=== PATIENT | female | born 1970 | race Caucasian/White ===

== ENCOUNTER → 2019-03-22 14:20 | Outpatient (CLI) | payer OTHER, BC, SELFPAY ==
--- NOTE | ~2019-03-22 | MMUS_ITS ---
EXAMINATION: MM diagnostic myra LT w ritesh, US breast LT limited HISTORY: Six-month follow-up for probably benign left breast masses TECHNIQUE: Craniocaudal, mediolateral, and mediolateral oblique 3-D tomosynthesis images of the left breast were performed and synthetic 2-D images were generated. And compression views are also obtaine d. CAD analysis was submitted and interpreted. High resolution limited left breast ultrasound was per formed. COMPARISON: 10/01/2018, 09/25/2018, 05/25/2017, 07/19/2015 BREAST PARENCHYMAL COMPOSITION: There are scattered areas of fibroglandular density. FINDINGS: MAMMOGRAPHIC FINDINGS: There is a persistent asymmetry in the middle third of the outer breast 7 cm from the nipple which christian s an appearance similar to prior examinations with spot compression views. An asymmetry is also seen in the posterior third of the inner breast 10 cm from the nipple on the craniocaudal view. This appea rs to somewhat dispersed with spot compression views. ULTRASOUND: There is a stable 4 mm x 3 mm oval, circumscribed, parallel, hypoechoic mass with no posterior featur es or internal vascularity at the 1:00 location 6.5 cm from the nipple. The previously described mass at the 1:00 location 8 cm from the nipple is no longer identified. A stable 3 mm x 2 mm mass with si milar sonographic features is seen at the 1:00 location near the nipple. Also identified is a 3 mm x 2 mm oval, circumscribed, parallel, hypoechoic mass at the 10:00 location 3.5 cm from the nipple. The re is some questionable posterior acoustic shadowing but no internal vascularity. IMPRESSION: 1. Probably benign left breast masses. 2. Recommend 6 month follow-up left diagnostic mammogram and ultrasound. BI-RADS category 3, probably benign findings. Reviewed, dictated and finalized at location A. ENE OPERATOR IMPRESSION: 1. Probably benign left breast masses. 2. Recommend 6 month follow-up left diagnostic mammogram and ultrasound. BI-RADS category 3, probably benign findings.
== END ==
PROVIDERS: PCP Physician Assistant; Visit Provider Obstetrics & Gynecology
DX: N63.0 Unspecified lump in unspecified breast (principal); R92.8 Other abnormal and inconclusive findings on diagnostic imaging of breast
CPT/HCPCS: 76642; 77061; 77065; G0279

== ENCOUNTER 2019-04-30 23:02 | Emergency (ER) | payer OTHER, BC, SELFPAY ==
[2019-04-30 23:03] VITALS: BP 130/97; PULSE 64; RESP 20; TEMP 36.4; O2SAT 100
--- NOTE | 2019-04-30 23:41 | ED.ABDPAIN ---
HPI - Abdominal Pain General Chief Complaint: Urogenital-Female Stated Complaint: UTI? Time Seen by Provider: 04/30/19 23:19 Source: patient Mode of arrival: ambulatory Limitations: no limitations History of Present Illness HPI narrative: Frequent urination few hours prior to arrival, similar symptoms secondary to urinary tract infection, denies any fever, chills, nausea, vomiting, suprapubic pressure type discomfort, no radiation of pain. Patient denies any vaginal bleeding or discharge. Related Data Allergies Allergy/AdvReac Type Severity Reaction Status Date / Time nitrofurantoin Allergy Swelling Verified 04/30/19 23:06 [From Macrobid] Review of Systems Review of Systems: Narrative: CONSTITUTIONAL: Denies fever, chills, or sweats. EYES: Denies visual changes, redness, or discharge. ENT: Denies rhinorrhea, congestion, sore throat, or otalgia. CARDIOVASCULAR: Denies chest pain, palpitations, or edema. RESPIRATORY: Denies cough or dyspnea. GASTROINTESTINAL: Denies abdominal pain, nausea, vomiting, or diarrhea. GENITOURINARY: Denies dysuria or hematuria. SKIN: Denies rash or itching. MUSCULOSKELETAL: Denies back pain, joint pain, or myalgia. NEUROLOGIC: Denies headache, numbness, or weakness. PSYCHIATRIC: Denies anxiety or depression. [facility] Past Medical History Medical History (Updated 05/01/19 @ 00:20 by Enid Simental MD) Kidney stones UTI (urinary tract infection) Surgical History Surgical History Hx of appendectomy Hx of spinal surgery Hx of tubal ligation Social History Social History (Updated 02/20/19 @ 10:58 by Danielle Becker) Smoking status: Never smoker Alcohol intake: current Substance use: never Gender identity (if verbalized by the patient): Female Exam Narrative: Exam Narrative: General appearance: Well-developed, well-nourished Skin: Normal color Chest and respiratory: Airway patent, no respiratory distress, no accessory muscle use Heart: Regular rate/rhythm Abdomen: Soft, nontender, no organomegaly, quiet bowel sounds Vascular: Normal peripheral pulses, normal capillary refill. Course Course Emergency Course: Stable Vital Signs Vital signs: Vital Signs Temperature 36.4 C L 04/30/19 23:03 Pulse Rate 64 04/30/19 23:03 Respiratory Rate 20 04/30/19 23:03 Blood Pressure 130/97 H 04/30/19 23:03 Pulse Oximetry 100 04/30/19 23:03 Temperature 36.4 C L 04/30/19 23:03 Pulse Rate 64 04/30/19 23:03 Respiratory Rate 20 04/30/19 23:03 Blood Pressure 130/97 H 04/30/19 23:03 Pulse Oximetry 100 04/30/19 23:03 MDM - Abdominal Pain MDM Narrative Medical decision making narrative: UTI is my concern. UA ordered. Further plan to follow Differential Diagnosis Differential diagnosis: Likely other (Urinary tract infection) Critical Care Time Critical Care Time Critical Care Time: No Discharge Plan Discharge Clinical Impression: Urethritis Patient Disposition: Home, Self-Care Condition: Stable Instructions: Antibiotic Form, Urinary Tract Infection in Women (ED) Additional Instructions: Return if symptoms are worsening , call your family physician for appointment, take Tylenol as as needed for aches and pain, continue home medications. Prescriptions: New sulfamethoxazole-trimethoprim [Bactrim DS] 800-160 mg tablet 1 tablet PO Q12H Qty: 6 RF: 0 pyridoxine (vitamin B6) 200 mg tablet extended release 200 mg PO TID Qty: 6 RF: 0 Follow-up/Referrals: Roberto,AURA Wilder [Primary Care Provider] -
[2019-04-30 23:45] LABS: Add Urine Microscopic? YES; Appearance Urine Clear (Clear); Bilirubin Urine Negative (Negative); Blood Urine 2+ (Negative); Color Urine Yellow (Yellow); Glucose Urine UA Negative (Negative); Ketones Urine Negative (Negative); Leukocyte Esterase Ur Trace LEU/UL (Negative); Mucus Urine Heavy /lpf; Nitrate Urine Negative (Negative); Protein Urine 2+ mg/dL (Negative); Squamous Epithelial Cell Urine Few /hpf (Few); Urobilinogen Urine Negative mg/dL (<2.0)
[2019-05-01 00:14] LABS: Specific Grav Ur 1.033 (1.001-1.035)
[2019-05-01 00:31] VITALS: BP 122/77; PULSE 77; RESP 18; O2SAT 98
== END 2019-05-01 00:32 | disposition home or self-care (01) ==
PROVIDERS: Emergency Provider Emergency Medicine; PCP Physician Assistant
DX: N34.2 Other urethritis (principal); Z87.442 Personal history of urinary calculi
CPT/HCPCS: 81001; 87086; 87088; 99283

== ENCOUNTER → 2019-11-09 08:22 | Outpatient (CLI) | payer OTHER, BC, SELFPAY ==
--- NOTE | ~2019-11-09 | MMUS_ITS ---
EXAMINATION: MM diagnostic myra BI w ritesh, US breast LT complete HISTORY: Left breast masses follow-up TECHNIQUE: ML, MLO and craniocaudal full field 3-D tomosynthesis images of the breasts were performed as well as additional spot images of the left breast and synthetic 2-D images were generated. Rolled medial and lateral craniocaudal views of left breast. CAD analysis was submitted and interpreted. Hi gh resolution complete left breast ultrasound was performed. COMPARISON: 03/22/2019 diagnostic left digital mammogram and limited left breast ultrasound 10/01/2018 diagnostic left digital mammogram and limited left breast ultrasound 09/25/2018, 05/25/2017, 07/19/2015 bilateral digital screening mammogram examinations BREAST PARENCHYMAL COMPOSITION: There are scattered areas of fibroglandular density. FINDINGS: MAMMOGRAPHIC FINDINGS: No suspicious mass or architectural distortion, malignant calcification, skin thickening or retractio n or significant new or developing density is evident since 07/19/2015. Occasional benign calcification s. ULTRASOUND: 1:00 subareolar area: Rounded 3 mm sonolucency without internal vascularity 1:00 6.5 cm from nipple: 2.6 mm sonolucency without internal vascularity 10:00 3.5 cm from nipple: Nonspecific 1.6 mm hypoechoic area without internal vascularity IMPRESSION: 1. Probably benign findings 2. 6 month left breast ultrasound follow-up is recommended. BI-RADS category 3, probably benign findings. Reviewed, dictated and finalized at location A. IMPRESSION: 1. Probably benign findings 2. 6 month left breast ultrasound follow-up is recommended. BI-RADS category 3, probably benign findings.
== END ==
PROVIDERS: PCP Physician Assistant; Visit Provider Nurse Practitioner Obstetrics & Gynecology
DX: R92.8 Other abnormal and inconclusive findings on diagnostic imaging of breast (principal)
CPT/HCPCS: 76641; 77062; 77066; G0279

== ENCOUNTER → 2020-11-12 14:21 | Outpatient (CLI) | payer OTHER, BC, SELFPAY ==
--- NOTE | ~2020-11-12 | MMUS_ITS ---
EXAMINATION: MM screening myra BI w ritesh, US breast LT limited HISTORY: Follow-up left breast mass TECHNIQUE: Craniocaudal and mediolateral oblique 3-D tomosynthesis images were obtained and synthetic 2-D images were generated. CAD analysis was submitted and interpreted. High-resolution Limited left breast ultrasound. COMPARISON: Comparison to multiple prior studies sequentially, with oldest reviewed study dated 03/2015. BREAST PARENCHYMAL COMPOSITION: There are scattered areas of fibroglandular density. FINDINGS: There is no evidence of suspicious mass, calcification, or architectural distortion to sugg est malignancy in either breast. There has been no suspicious interval change. Limited left breast ultrasound: Normal heterogeneous echotexture without focal mass. IMPRESSION: 1. No evidence of malignancy. 2. Recommend routine screening mammography in one year. BI-RADS Category 1: Negative Reviewed, dictated and finalized at location A. IMPRESSION: 1. No evidence of malignancy. 2. Recommend routine screening mammography in one year. BI-RADS Category 1: Negative
== END ==
PROVIDERS: PCP Physician Assistant; Visit Provider Nurse Practitioner Obstetrics & Gynecology
DX: Z12.31 Encounter for screening mammogram for malignant neoplasm of breast (principal); N63.20 Unspecified lump in the left breast, unspecified quadrant
CPT/HCPCS: 76642; 77063; 77067

== ENCOUNTER 2022-01-01 08:20 | Emergency (ER) | payer OTHER, BC, SELFPAY ==
--- NOTE | ~2022-01-01 | XR_ITS ---
EXAMINATION: XR chest 2V DATE: 01/01/2022 08:49 INDICATION: Chest pain radiating from the back. TECHNIQUE: Frontal and lateral views of the chest were obtained. COMPARISON: Chest 2 views 12/07/2003, CT abdomen and pelvis 02/15/2019 FINDINGS: There is no pneumonia, pleural effusion, or pneumothorax. The heart size is normal. IMPRESSION: 1. No acute cardiopulmonary disease. Reviewed, dictated and finalized at location A. N FARMER
--- NOTE | 2022-01-01 08:29 | ECG_ITS ---
Measurements Intervals [place] Rate: 69 P: 49 MI: 155 QRS: 31 QRSD: 85 T: 32 QT: 366 QTc: 393 Interpretive Statements SINUS RHYTHM NORMAL ECG NO PREVIOUS ECG AVAILABLE FOR COMPARISON Electronically Signed On 01-01-2022 12:07:09 [employer] by John Ivy D.O.
[2022-01-01 08:30] VITALS: BP 142/91; PULSE 81; RESP 18; TEMP 37.2; O2SAT 100
[2022-01-01 08:38] VITALS: O2SAT 100
[2022-01-01 08:43] LABS: Basophils Percent Auto 0.6 % (0.2-1.2); Eosinophils Absolute Auto 0.1 K/mm3 (0-0.3); Eosinophils Percent Auto 1.6 % (0-4.4); Hematocrit 39.9 % (37.0-47.0); Hemoglobin 13.2 g/dL (12.0-15.0); Immature Granulocyte Absolute 0.02 K/mm3 (0.00-0.031); Immature Granulocyte Percent A 0.3 % (0-0.5); Lymphocytes Percent Auto 35.7 % (18.3-44.2); Mean Corpuscular HGB Conc 33.1 g/dl (32-36); Mean Corpuscular Hemoglobin 31.3 pg (26-34); Mean Corpuscular Volume 94.5 fl (80-100); Mean Platelet Volume 9.8 fl (7.4-10.4); Monocytes Absolute Auto 0.4 K/mm3 (0.1-0.6); Neutrophils Absolute Auto 3.4 K/mm3 (1.3-6.7); Neutrophils Percent Auto 55.8 % (45.5-73.1); Platelet Count Result 353 k/mm3 (150-375); Red Blood Count 4.22 M/mm3 (4.2-5.4); Red Cell Distribution Width 13.3 % (11.5-14.5); White Blood Count 6.2 K/mm3 (4.5-10.0)
[2022-01-01 08:58] LABS: Prothrombin Time 12.5 Seconds (11.1-14.7)
[2022-01-01 08:59] LABS: Alanine Aminotransferase 18 U/L (6-35); Albumin Level 4.8 g/dL (3.5-5.1); Alkaline Phosphatase 86 U/L (38-126); Anion Gap 15 mmol/L (8-16); Aspartate Amino Transferase 26 U/L (14-36); Bilirubin,Total 0.4 mg/dL (0.2-1.3); Blood Urea Nitrogen 13 mg/dL (7-17); Calcium 9.5 mg/dL (8.4-10.2); Carbon Dioxide 24 mmol/L (22-30); Chloride 104 mmol/L (98-107); Estimated CRCL calculation 77 ml/min; Estimated Glomerular Filt Rate > 60; Glucose 99 mg/dL (65-110); Lipase 99 U/L (23-300); Partial Thromboplastin Time 30.3 SECONDS (22.3-36.8); Potassium 3.5 mmol/L (3.4-5.0); Sodium 143 mmol/L (137-145)
[2022-01-01 09:11] LABS: Troponin I < 0.012 ng/mL (0.000-0.034)
--- NOTE | 2022-01-01 09:31 | ED.CHESTPAIN ---
HPI - Chest Pain General Chief Complaint: Chest Pain Stated Complaint: back pain/ chest pain Time Seen by Provider: 01/01/22 09:01 Source: patient Mode of arrival: ambulatory Limitations: no limitations History of Present Illness HPI narrative: Patient is a 51-year-old female who presents the ED with report of back and chest pain. Patient reports she has had intermittent left upper back pain since last Thursday. She has been taking Tylenol and 1 muscle relaxer for the pain. She assumed she just slept wrong. Pain worse with taking deep breaths and certain movements. Today around 2 AM this morning, patient woke up with worsening left upper back pain and pain in her midsternal chest. The chest pain has been intermittent, described as a dull ache, no aggravation with exertion. No history of CAD. No history of hypertension, hyperlipidemia, diabetes, smoking. No SOB, BLE pain or edema, no recent long distance travel, hormonal control use, Hx of blood clots. Related Data Allergies Allergy/AdvReac Type Severity Reaction Status Date / Time nitrofurantoin Allergy Swelling Verified 01/01/22 08:41 [From Macrobid] Review of Systems Review of Systems: CONSTITUTIONAL: Denies fever, chills, or sweats. CARDIOVASCULAR: Reports midsternal chest pain. Denies palpitations, or edema. RESPIRATORY: Reports pleuritic pain. Denies cough or dyspnea. GASTROINTESTINAL: Denies abdominal pain, nausea, vomiting, or diarrhea. MUSCULOSKELETAL: Reports left upper back pain. Denies BLE pain. NEUROLOGIC: Denies headache, numbness, or weakness. All systems reviewed & are unremarkable except as noted in HPI and below PMFSH Past Medical History Medical History Kidney stones UTI (urinary tract infection) Surgical History Surgical History Hx of appendectomy Hx of spinal surgery Hx of tubal ligation Social History Social History Smoking status: Never smoker Alcohol intake: current Alcohol use details: Occasional Substance use: never Gender identity (if verbalized by the patient): Female Exam Narrative: GENERAL: Well appearing, well-nourished, non-toxic, in no acute distress. HEAD: Normocephalic, atraumatic. NECK: Supple. No adenopathy, no masses. RESPIRATORY: Airway patent, respirations nonlabored. Clear to auscultation bilaterally, no rales, rhonchi, wheezing. CARDIOVASCULAR: Regular rate and rhythm without murmurs, rubs, or gallops. Peripheral pulses 2+ and equal bilaterally. MUSCULOSKELETAL: Moves all extremities. Strength/ROM intact without gross deformities. No calf tenderness. No edema. No anterior chest wall tenderness. No midline cervical, thoracic, lumbar spinal tenderness. Minimal tenderness palpation over the left lower scapular region. SKIN: Warm, dry, normal color. No rashes. NEURO: A&O X3. Speech clear. Cranial nerves II-XII grossly intact. Steady gait. No ataxic movements. PSYCHIATRIC: Appropriate mood and affect. Normal interaction. Course Vital Signs Vital signs: Vital Signs Temperature 98.9 F 01/01/22 08:30 Pulse Rate 81 01/01/22 08:30 Respiratory Rate 18 01/01/22 08:30 Blood Pressure 142/91 H 01/01/22 08:30 Pulse Oximetry 100 01/01/22 08:30 Oxygen Delivery Room Air 01/01/22 08:30 Temperature 98.9 F 01/01/22 08:30 Pulse Rate 69 01/01/22 12:10 Respiratory Rate 20 01/01/22 12:10 Blood Pressure 122/80 01/01/22 12:10 Pulse Oximetry 100 01/01/22 12:10 Oxygen Delivery Room Air 01/01/22 08:38 MDM - Chest Pain MDM Narrative Medical decision making narrative: Patient presented to ED with report of left upper back, chest pain, pain aggravated with deep breaths and movement. Patient's EKGs and labs are without significant high risk changes. EKG w/o acute ischemic changes. Troponin negativ
[2022-01-01 09:38] VITALS: PULSE 69; RESP 12; O2SAT 100
[2022-01-01 10:39] VITALS: BP 123/87; PULSE 72; RESP 12; O2SAT 100
[2022-01-01 10:42] LABS: D Dimer 0.27 ug/mL (<0.48)
[2022-01-01 11:52] LABS: Troponin I < 0.012 ng/mL (0.000-0.034)
[2022-01-01 12:10] VITALS: BP 122/80; PULSE 69; RESP 20; O2SAT 100
== END 2022-01-01 12:34 | disposition home or self-care (01) ==
PROVIDERS: Emergency Provider Emergency Medicine; PCP Physician Assistant
DX: R07.89 Other chest pain (principal); M54.9 Dorsalgia, unspecified; Z87.442 Personal history of urinary calculi; Z87.440 Personal history of urinary (tract) infections
CPT/HCPCS: 36415; 71046; 80053; 83690; 84484; 85025; 85380; 85610; 85730; 93005; 99284

== ENCOUNTER 2022-03-26 18:56 | Emergency (ER) | payer OTHER, BC, SELFPAY ==
--- NOTE | ~2022-03-26 | CT_ITS ---
EXAMINATION: CT abdomen pelvis wo con DATE: 03/26/2022 21:34 INDICATION: Right flank pain TECHNIQUE: Computed tomography (CT) of the abdomen and pelvis was performed without intravenous contr ast. Automated exposure control and iterative reconstruction technique were employed. The dose-length product was 228.82 mGy-cm. COMPARISON: 02/15/2019 FINDINGS: Lower lungs are clear. Heart size is normal. No pericardial or pleural effusion. A few hepatic cysts the largest measuring up to 1 cm . Gallbladder, spleen, pancreas and bilateral adrenal glands are nor mal. Kidneys and ureters are normal with no urolithiasis, hydroureteronephrosis or perinephric/ureter al stranding. Bowels are normal. Normal short appendix versus appendiceal stump with no surrounding i nflammatory change to suggest acute appendicitis. Bladder is normal. Bilateral tubal ligation rings s ituated between the normal anteverted uterus and the bilateral adnexa. No free intraperitoneal gas or fluid. No pathologically enlarged abdominal or pelvic lymphadenopathy. Combined instrumented anterio r and posterior spinal fusion at L5 along with interbody bone graft cages and bilateral vertical [place] and pedicle screw fixation. Mild lumbar and moderate lower thoracic spondylosis. IMPRESSION: 1. No urolithiasis or acute intra-abdominal/pelvic process. Reviewed, dictated and finalized at location A. WORKER
[2022-03-26 19:02] VITALS: BP 131/90; PULSE 64; RESP 18; TEMP 36.4; O2SAT 100
[2022-03-26 19:16] LABS: Basophils Absolute Auto 0.1 K/mm3 (0.0-0.1); Basophils Percent Auto 0.7 % (0.2-1.2); Eosinophils Absolute Auto 0.3 K/mm3 (0-0.3); Eosinophils Percent Auto 2.5 % (0-4.4); Hemoglobin 12.2 g/dL (12.0-15.0); Immature Granulocyte Absolute 0.02 K/mm3 (0.00-0.031); Immature Granulocyte Percent A 0.2 % (0-0.5); Lymphocytes Absolute Auto 4.67 K/mm3 (0.9-3.2); Lymphocytes Percent Auto 46.9 % (18.3-44.2); Mean Corpuscular Hemoglobin 30.9 pg (26-34); Mean Corpuscular Volume 93.7 fl (80-100); Mean Platelet Volume 9.4 fl (7.4-10.4); Monocytes Absolute Auto 0.7 K/mm3 (0.1-0.6); Monocytes Percent Auto 7.1 % (2.6-8.5); Neutrophils Absolute Auto 4.2 K/mm3 (1.3-6.7); Neutrophils Percent Auto 42.6 % (45.5-73.1); Platelet Count Result 380 k/mm3 (150-375); Red Blood Count 3.95 M/mm3 (4.2-5.4); Red Cell Distribution Width 13.4 % (11.5-14.5)
[2022-03-26 19:31] LABS: Alanine Aminotransferase 27 U/L (6-35); Albumin Level 4.4 g/dL (3.5-5.1); Alkaline Phosphatase 94 U/L (38-126); Anion Gap 9 mmol/L (8-16); Aspartate Amino Transferase 25 U/L (14-36); Bilirubin,Total 0.5 mg/dL (0.2-1.3); Blood Urea Nitrogen 14 mg/dL (7-17); Carbon Dioxide 25 mmol/L (22-30); Chloride 103 mmol/L (98-107); Estimated CRCL calculation 66 ml/min; Estimated Glomerular Filt Rate > 60; Glucose 91 mg/dL (65-110); Lipase 88 U/L (23-300); Potassium 3.8 mmol/L (3.4-5.0); Sodium 137 mmol/L (137-145)
[2022-03-26 20:47] LABS: Add Urine Microscopic? YES; Appearance Urine Clear (Clear); Bilirubin Urine Negative (Negative); Blood Urine 2+ (Negative); Color Urine Orange (Yellow); Glucose Urine UA Trace mg/dL (Negative); Ketones Urine Negative (Negative); Leukocyte Esterase Ur 1+ LEU/UL (Negative); Nitrate Urine Positive (Negative); Protein Urine Trace mg/dL (Negative); Specific Grav Ur <= 1.005 (1.001-1.035)
--- NOTE | 2022-03-26 20:50 | ED.FEMALEGU ---
HPI - Female Genitourinary General Chief complaint: Urogenital-Female Stated complaint: abdominal pain Time Seen by Provider: 03/26/22 20:18 History of Present Illness HPI Narrative: This is a 52F w/history of kidney stones presents from urgent care with concern for repeat stone. She states 1 week ago, she had mild aching back pain that has since resolved. A UA at an urgent care at the time showed blood without other changes for UTI. Today, she felt some suprapubic cramping. She went to urgent care and was told she had blood and bacteria. She was advised to present her for evaluation for kidney stone. Related Data Allergies Allergy/AdvReac Type Severity Reaction Status Date / Time nitrofurantoin Allergy Swelling Verified 01/01/22 08:41 [From YingYangbid] Review of Systems Review of Systems: CONSTITUTIONAL: Denies fever, chills, or sweats. EYES: Denies visual changes, redness, or discharge. ENT: Denies rhinorrhea, congestion, sore throat, or otalgia. CARDIOVASCULAR: Denies chest pain, palpitations, or edema. RESPIRATORY: Denies cough or dyspnea. GASTROINTESTINAL: Mild suprapubic cramping, Denies abdominal pain, nausea, vomiting, or diarrhea. GENITOURINARY: Urinary frequency Denies dysuria or hematuria. SKIN: Denies rash or itching. MUSCULOSKELETAL: Denies back pain, joint pain, or myalgia. NEUROLOGIC: Denies headache, numbness, dizziness, or weakness. PSYCHIATRIC: Denies anxiety or depression. PMFSH Past Medical History Medical History Kidney stones UTI (urinary tract infection) Surgical History Surgical History Hx of appendectomy Hx of spinal surgery Hx of tubal ligation Social History Social History Smoking status: Never smoker Alcohol intake: current Alcohol use details: Occasional Substance use: never Gender identity (if verbalized by the patient): Female Exam Narrative: GENERAL: Well-developed, well-nourished, and in no acute distress. HEAD: Normocephalic, atraumatic. EYES: PERRLA and EOMI. CHEST: Clear to auscultation. No respiratory distress. No wheezes rales or rhonchi HEART: Regular rate and rhythm. No murmur heard. Normal peripheral pulses. ABDOMEN: Soft, nontender to palpation, nondistended, normal active bowel sounds. No CVA tenderness to palpation EXTREMITIES: Normal range of motion. No edema. NEURO: No focal deficits. Alert and oriented x3. PSYCH: Normal mood and affect. Course Course Emergency Course: 23:00 - CT not concerning for stone. UA consistent with UTI. Will discharge with antibiotics. Discussed return and emergency precautions including acute abdomen. The patient voiced understanding and agreement. All questions answered to the patient's satisfaction. Vital Signs Vital signs: Vital Signs Temperature 97.6 F 03/26/22 19:02 Pulse Rate 64 03/26/22 19:02 Respiratory Rate 18 03/26/22 19:02 Blood Pressure 131/90 03/26/22 19:02 Pulse Oximetry 100 03/26/22 19:02 Oxygen Delivery Room Air 03/26/22 19:02 Temperature 97.6 F 03/26/22 19:02 Pulse Rate 66 03/26/22 23:20 Respiratory Rate 18 03/26/22 23:20 Blood Pressure 126/84 03/26/22 23:20 Pulse Oximetry 100 03/26/22 23:20 Oxygen Delivery Room Air 03/26/22 19:02 MDM - Female Genitourinary MDM Narrative Medical decision making narrative: Plan: Labs, imaging, reassess Differential Diagnosis Differential diagnosis: Likely urinary tract infection and other (nephrolithiasis, other) Lab Data 03/26/22 19:07 03/26/22 19:07 Labs: Lab Results 03/26/22 03/26/22 03/26/22 Range/Units 19:07 19:07 20:12 WBC 10.0 (4.5-10.0) K/mm3 RBC 3.95 L (4.2-5.4) M/mm3 Hgb 12.2 (12.0-15.0) g/dL Hct 37.0 (37.0-47.0) % MCV 93.7 (80-100) fl MCH 30.9 (26-34) pg MCHC 33.0 (3
[2022-03-26 21:00] LABS: Mucus Urine Rare /lpf; Squamous Epithelial Cell Urine Rare /hpf (Few); WBC Urine >75 /hpf
[2022-03-26 23:20] VITALS: BP 126/84; PULSE 66; RESP 18; O2SAT 100
== END 2022-03-26 23:15 | disposition home or self-care (01) ==
PROVIDERS: Emergency Medicine; Emergency Provider Preventive Medicine Aerospace Medicine; PCP Physician Assistant
DX: N39.0 Urinary tract infection, site not specified (principal); Z87.442 Personal history of urinary calculi; Z87.440 Personal history of urinary (tract) infections
CPT/HCPCS: 36415; 74176; 80053; 81001; 81025; 83690; 85025; 87077; 87086; 87186; 99284

== ENCOUNTER → 2022-05-30 17:01 | Outpatient (CLI) | payer OTHER, BC, SELFPAY ==
--- NOTE | ~2022-05-30 | MM_ITS ---
EXAMINATION: MM screening [facility] BI w ritesh HISTORY: Screening mammogram TECHNIQUE: Craniocaudal and mediolateral oblique 3-D tomosynthesis images were obtained and synthetic 2-D images were generated. CAD analysis was submitted and interpreted. COMPARISON: 11/12/2020, 11/09/2019, 03/22/2019, 10/01/2018, 09/25/2018 BREAST PARENCHYMAL COMPOSITION: There are scattered areas of fibroglandular density. FINDINGS: No suspicious mass, calcification, or architectural distortion are identified in either zafar ast to suggest malignancy. There has been no suspicious interval change. IMPRESSION: 1. No mammographic evidence of malignancy. 2. Recommend routine screening mammography in one year. BI-RADS Category 1: Negative Reviewed, dictated and finalized at location A.
== END ==
PROVIDERS: PCP Physician Assistant; Visit Provider Nurse Practitioner Obstetrics & Gynecology
DX: Z12.31 Encounter for screening mammogram for malignant neoplasm of breast (principal)
CPT/HCPCS: 77063; 77067

== ENCOUNTER 2023-05-19 14:08 | Outpatient (CLI) | payer OTHER, BC, SELFPAY ==
--- NOTE | ~2023-05-19 | XR_ITS ---
XR thoracic spine 2V DATE: 05/19/2023 14:38 INDICATION: Back pain TECHNIQUE: COMPARISON: None FINDINGS: There is 33 degrees levoscoliosis measured from T3 to T6. Osteopenia. Minimal likely chronic anterior wedging of T12. No recent fracture or dislocation or bone destruction . No paraspinal soft tissue thickening. IMPRESSION: 33 degrees levoscoliosis from T3 to T6 Osteopenia Likely chronic minimal anterior wedging of T12 Reviewed, dictated and finalized at location B.
--- NOTE | ~2023-05-19 | XR_ITS ---
XR cervical spine min 6V DATE: 05/19/2023 14:37 INDICATION: Neck pain TECHNIQUE: Flexion and extension lateral views. AP, open-mouth, lateral and bilateral oblique views COMPARISON: None FINDINGS: There is mild reversal cervical curvature which may be due to muscle spasm. C1 and C2 are normally aligned and the odontoid process is intact. No fracture or dislocation or lock ed facet or prevertebral soft tissue swelling is detected. No instability is noted on flexion or extension. There is slight retrolisthesis at C3-4 which is pres ent in neutral and extension, reduced in flexion. Slight anterolisthesis at C7-T1 is stable in neutra l, flexion and extension. There is mild degenerative disc disease at C4-5. Moderately severe degenerative disc disease at C5-6 and C6-7, with moderate posterior spurring at C5- 6. Slight anterolisthesis at C7-T1. The oblique views reveal some anterior bony encroachment upon the right C4, C5, C6 and particularly C 7 neural foramina dictated and degenerative change at the uncovertebral joints. There is a prominent apophyseal joint spurring encroaching upon the posterior aspect of the left C5 neural foramen in shmuel tion to uncovertebral joint spurring encroaching upon the anterior left C4, C5, C6 in particular C7 n eural foramina. Mild dextro scoliosis of the cervical spine. Prominent levoscoliosis of the thoracic spine. IMPRESSION: Osteopenia Mild reversal cervical curvature which may be due to muscle spasm Moderately severe cervical spondylosis Reviewed, dictated and finalized at location B.
== END 2023-05-19 14:09 ==
LOC: MICIMG 14:10
PROVIDERS: PCP Physician Assistant; Visit Provider Chiropractor
DX: M41.84 Other forms of scoliosis, thoracic region (principal); M43.02 Spondylolysis, cervical region; M85.88 Other specified disorders of bone density and structure, other site; M43.8X2 Other specified deforming dorsopathies, cervical region
CPT/HCPCS: 72052; 72070

== ENCOUNTER 2023-05-26 07:00 | Outpatient (CLI) | payer OTHER, BC, SELFPAY ==
--- NOTE | ~2023-05-26 | MR_ITS ---
MRI of the cervical spine Clinical History: Radiculopathy Technique: Axial T2-weighted and gradient images, and sagittal T1-weighted, T2-weighted, and STIR gray ges were acquired. Findings: There is mild reversal normal cervical lordosis. No fracture or sublocation evident. No marie picious bone marrow signal abnormality seen. At C2-C3, there is no disc bulge or herniation. No spinal canal stenosis, cord compression, or neural foraminal narrowing. At C3-C4, there is minimal disc osteophyte complex. No spinal canal stenosis or cord compression. No neural foraminal narrowing despite mild left facet arthropathy. At C4-C5, there is minimal disc osteophyte complex. No erin canal stenosis or cord compression. Ther e is left neural foraminal narrowing with facet arthropathy. Right neural foramen preserved. At C5-C6, there is moderate degenerative disc narrowing with small disc osteophyte complex which mini mariella flattens the ventral cord. Bilateral neural foramina are preserved. At C6-C7, there is moderate degenerative disc narrowing. There is minimal disc bulge without erin ca nal stenosis or cord compression. There is probable left neural foraminal narrowing. Right neural for amen preserved. No abnormal signal seen in the spinal cord. Paravertebral soft tissues are unremarkable. Impression: Mild degenerative spondylosis overall, as detailed above. Reviewed, dictated and finalized at [facility]. Impression: Mild degenerative spondylosis overall, as detailed above.
== END 2023-05-26 07:01 ==
PROVIDERS: PCP Physician Assistant; Visit Provider Chiropractor
DX: M47.892 Other spondylosis, cervical region (principal)
CPT/HCPCS: 72141

== ENCOUNTER 2023-08-11 07:54 | Outpatient (CLI) | payer OTHER, BC, SELFPAY ==
--- NOTE | 2023-08-11 08:14 | ECG_ITS ---
Test Date: 2023-08-11 08:22:58 Measurements Intervals [place] Rate: 70 P: 48 SD: 157 QRS: 34 QRSD: 89 T: 34 QT: 382 QTc: 413 Interpretive Statements SINUS RHYTHM No previous ECG available for comparison Electronically Signed On 08-11-2023 13:35:48 CDT by Imani Holguin M.D.
== END 2023-08-11 07:55 | disposition home or self-care (01) ==
PROVIDERS: PCP Physician Assistant
DX: Z01.818 Encounter for other preprocedural examination (principal)
CPT/HCPCS: 93005

== ENCOUNTER 2023-09-28 13:40 | Outpatient (CLI) | payer OTHER, BC, SELFPAY ==
--- NOTE | ~2023-09-28 | MM_ITS ---
EXAMINATION: MM screening myra BI w ritesh HISTORY: Screening TECHNIQUE: Craniocaudal and mediolateral oblique 3-D tomosynthesis images were obtained and synthetic 2-D images were generated. CAD analysis was submitted and interpreted. COMPARISON: Comparison to multiple prior studies sequentially, with oldest reviewed study dated 09/25. BREAST PARENCHYMAL COMPOSITION: Not dense: There are scattered areas of fibroglandular density. FINDINGS: There is no evidence of suspicious mass, calcification, or architectural distortion to sugg est malignancy in either breast. There has been no suspicious interval change. IMPRESSION: 1. No mammographic evidence of malignancy. 2. Recommend routine screening mammography in one year. BI-RADS Category 1: Negative Reviewed, dictated and finalized at location B.
== END 2023-09-28 13:41 ==
LOC: MICIMG 13:41
PROVIDERS: PCP Physician Assistant; Visit Provider Obstetrics & Gynecology
DX: Z12.31 Encounter for screening mammogram for malignant neoplasm of breast (principal)
CPT/HCPCS: 77063; 77067

== ENCOUNTER 2023-12-18 03:02 | Day surgery (SDC) | payer OTHER, BC, SELFPAY ==
[2023-12-08 12:23] VITALS: BMI 23.8
[2023-12-18 10:04] VITALS: BP 130/96; PULSE 93; RESP 18; TEMP 36.4; O2SAT 100; BMI 23.8
[2023-12-18] MEDS: LACTATED RINGERS 1,000 ML 150 ML IV CONT (10:07)
--- NOTE | 2023-12-18 10:18 | P.PNAN_ITS ---
Anes - Initial Pre Proc Eval Procedure: Operation Date: 12/18/23 11:00 Proposed Procedures p Screening Colonoscopy - Luis M Bailey MD Date/Time: 12/18/23 10:18 Surgeon: Luis M Bailey MD Pre Op Diagnosis: Neoplasm Screening Patient Data Age: 53 Gender: F Height: 1.6 m Weight: 60.9 kg Last Vital Signs Temp 36.4 C 12/18/23 10:04 Pulse 93 12/18/23 10:04 Resp 18 12/18/23 10:04 BP 130/96 H 12/18/23 10:04 Pulse Ox 100 12/18/23 10:04 O2 Del Method Room Air 12/18/23 10:04 Allergies Allergy/AdvReac Type Severity Reaction Status Date / Time nitrofurantoin Allergy Swelling Verified 12/18/23 10:02 [From Macrobid] Home Medications Medication Instructions Recorded Confirmed Type gabapentin 100 mg capsule 100 mg TID 12/08/23 12/18/23 History rosuvastatin 5 mg tablet 5 mg PO DAILY 12/08/23 12/18/23 History valacyclovir 1 gram tablet 1,000 mg PO DAILY 12/08/23 12/18/23 History venlafaxine 37.5 mg 37.5 mg PO HS 12/08/23 12/18/23 History capsule,extended release 24 hr trimethoprim 100 mg tablet 100 mg PO HS 12/17/23 12/18/23 History Patient hx anesthesia problems: none Family hx anesthesia problems: none Results Review: All pre-operative results and documents have been reviewed as part of the pre- operative evaluation. [facility] Past Medical History Medical History Kidney stones UTI (urinary tract infection) Surgical History Surgical History Hx of appendectomy Hx of spinal surgery Hx of tubal ligation Social History Social History Smoking status: Never smoker Alcohol intake: current Alcohol use details: Occasional Substance use: never Gender identity (if verbalized by the patient): Female Spiritual care concerns: No Anes - Eval Final PreProcedure Day of Procedure 12/18/23 10:18 Patient weight: normal Heart: regular rate and rhythm Lungs: clear to auscultation Airway: Mallampati scale class II Neurological: alert and oriented Last oral intake: >/= 8 hours ASA classification: II Emergent: no Anesthetic plan: proceed Anesthesia type and monitoring: general GIVS and standard monitoring Results Review: All pre-operative results and documents have been reviewed as part of the pre-op erative evaluation. Informed Consent: The patient's anesthetic plan and its attendant risks and benefits were discussed with the patient/family/POA. Questions were solicited and answers provided to the satisfaction of the patient/family/POA.
--- NOTE | 2023-12-18 10:43 | PM.HPGS ---
History of Present Illness History of Present Illness Consent: Risks, benefits, and alternatives have been discussed and questions answered. Patient agrees to proceed with procedure. Chief complaint: Neoplasm Screening Narrative: Jessica Mahmood is a 53 year old female with h/o colon cancer in father, last colonoscopy about 7 years ago Review of Systems Review of Systems: All systems reviewed & are unremarkable except as noted in HPI and below PMFSH Past Medical History Medical History (Updated 12/18/23 @ 10:44 by Luis M Bailey MD) Family history of colon cancer in father Kidney stones UTI (urinary tract infection) Surgical History Surgical History Hx of appendectomy Hx of spinal surgery Hx of tubal ligation Social History Social History Smoking status: Never smoker Alcohol intake: current Alcohol use details: Occasional Substance use: never Gender identity (if verbalized by the patient): Female Spiritual care concerns: No Meds Home Medications and Allergies Home Medications Medication Instructions Recorded Confirmed Type gabapentin 100 mg capsule 100 mg TID 12/08/23 12/18/23 History rosuvastatin 5 mg tablet 5 mg PO DAILY 12/08/23 12/18/23 History valacyclovir 1 gram tablet 1,000 mg PO DAILY 12/08/23 12/18/23 History venlafaxine 37.5 mg 37.5 mg PO HS 12/08/23 12/18/23 History capsule,extended release 24 hr trimethoprim 100 mg tablet 100 mg PO HS 12/17/23 12/18/23 History Allergies Allergy/AdvReac Type Severity Reaction Status Date / Time nitrofurantoin Allergy Swelling Verified 12/18/23 10:02 [From Macrobid] Vital Signs Vital Signs - 24 hr 12/18/23 10:04 Temperature 97.6 F Pulse Rate 93 Respiratory Rate 18 Blood Pressure 130/96 H Pulse Oximetry 100 Oxygen Delivery Room Air Exam Const: General: comfortable and no acute distress HENMT: Face/Nose/Sinus: Normal nares present Eyes: General: appearance normal, both eyes and all related structures Neck: Neck: no JVD Resp: Auscultation: clear to auscultation bilaterally Cardio: Rate: regular rate Rhythm: regular rhythm GI: Inspection: non-distended GI Palp: Yes Soft to palpation Skin: General skin exam: normal color Neuro: General: gait normal Speech: normal speech Extrem: General: normal to inspection Psych: Mental Status: mental status grossly normal Assessment and Plan Assessment and plan (1) Family history of colon cancer in father: Code(s): Z80.0 - Family history of malignant neoplasm of digestive organs Status: Acute Assessment and Plan: colonoscopy
[2023-12-18 11:01] VITALS: BP 96/62; PULSE 92; RESP 14; O2SAT 97
[2023-12-18 11:11] VITALS: BP 93/61; PULSE 84; RESP 24; O2SAT 98
[2023-12-18 11:21] VITALS: BP 114/72; PULSE 84; RESP 20; O2SAT 100
== END 2023-12-18 11:50 | disposition home or self-care (01) ==
PROVIDERS: PCP Physician Assistant; Visit Provider Internal Medicine Gastroenterology
PROC: 0DJD8ZZ Inspection of Lower Intestinal Tract, Via Natural or Artificial Opening Endoscopic (ICD-10-PCS; CPT 45378; principal; 2023-12-18 11:00)
DX: Z12.11 Encounter for screening for malignant neoplasm of colon (principal); D12.3 Benign neoplasm of transverse colon; Z98.890 Other specified postprocedural states; Z98.51 Tubal ligation status; Z98.1 Arthrodesis status; Z87.442 Personal history of urinary calculi; Z80.0 Family history of malignant neoplasm of digestive organs
CPT/HCPCS: 45385; 88305; J2003; J2704; J7120

== ENCOUNTER 2023-12-25 16:33 | Outpatient (CLI) | payer OTHER, BC, SELFPAY ==
[2023-12-25 17:10] LABS: Bacteria Urine None Seen /hpf; Need Manual Microscopic Reviewed; Non Pathogenic Casts 0-2; Squamous Epithelial Cell Urine None Seen /hpf (Few); WBC Urine >100 /hpf (0-3)
[2023-12-25 17:13] LABS: Add Urine Microscopic? YES; Appearance Urine Cloudy (Clear); Bilirubin Urine 1+ (Negative); Blood Urine 1+ (Negative); Color Urine Orange (Yellow); Glucose Urine UA Negative (Negative); Ketones Urine Negative (Negative); Leukocyte Esterase Ur 3+ LEU/UL (Negative); Nitrate Urine Positive (Negative); Protein Urine Trace mg/dL (Negative); Specific Grav Ur 1.017 (1.001-1.035); pH Urine 6.5 (5.0-9.0)
== END 2023-12-25 16:34 | disposition home or self-care (01) ==
PROVIDERS: PCP Physician Assistant; Visit Provider Physician Assistant
DX: N39.0 Urinary tract infection, site not specified (principal)
CPT/HCPCS: 81001

== ENCOUNTER 2024-01-07 16:07 | Outpatient (CLI) | payer OTHER, BC, SELFPAY ==
[2024-01-07 16:51] LABS: Add Urine Microscopic? YES; Appearance Urine Clear (Clear); Bacteria Urine 1+ /hpf; Bilirubin Urine Negative (Negative); Blood Urine 1+ (Negative); Color Urine Dark Yellow (Yellow); Glucose Urine UA Negative (Negative); Ketones Urine Negative (Negative); Leukocyte Esterase Ur 3+ LEU/UL (Negative); Nitrate Urine Positive (Negative); Non Pathogenic Casts 0-2; Protein Urine Negative (Negative); Specific Grav Ur 1.004 (1.001-1.035); Squamous Epithelial Cell Urine None Seen /hpf (Few); Urobilinogen Urine 0.2 mg/dL (<2.0); WBC Urine >100 /hpf (0-3); pH Urine 7.5 (5.0-9.0)
== END 2024-01-07 16:08 | disposition home or self-care (01) ==
LOC: ANHLAB 16:09
PROVIDERS: PCP Physician Assistant; Visit Provider Physician Assistant
DX: R39.9 Unspecified symptoms and signs involving the genitourinary system (principal)
CPT/HCPCS: 81001; 87077; 87086; 87186

== ENCOUNTER 2024-04-06 19:38 | Emergency (ER) | payer OTHER, BC, SELFPAY ==
[2024-04-06 19:46] VITALS: BP 123/84; PULSE 84; RESP 16; TEMP 36.3; O2SAT 100
--- NOTE | 2024-04-06 19:56 | ED_ITS ---
HPI - Ear Problem General Chief complaint: Ear Stated complaint: EARACHE Time Seen by Provider: 04/06/24 19:56 Source: patient Mode of arrival: ambulatory Limitations: no limitations History of Present Illness HPI Narrative: 54-year-old female presents with complaint of right ear pain since yesterday. Patient reports recent nasal congestion that has resolved. Afebrile. All systems reviewed and negative except as noted above. Related Data Home Medications ?Medication ?Instructions ?Recorded ?Confirmed ?Last Taken ?Type rosuvastatin 5 mg tablet 5 mg PO DAILY 12/08/23 12/18/23 12/17/23 History venlafaxine 37.5 mg 37.5 mg PO HS 12/08/23 12/18/23 12/17/23 History capsule,extended release 24 hr Allergies Allergy/AdvReac Type Severity Reaction Status Date / Time nitrofurantoin (From Allergy Swelling Verified 04/06/24 19:55 Macrobid) Review of Systems Review of Systems: CONSTITUTIONAL: Denies fever, chills, or sweats. EYES: Denies visual changes, redness, or discharge. ENT: Denies rhinorrhea, congestion, sore throat. Reports right ear pain. CARDIOVASCULAR: Denies chest pain, palpitations, or edema. RESPIRATORY: Denies cough or dyspnea. GASTROINTESTINAL: Denies abdominal pain, nausea, vomiting, or diarrhea. GENITOURINARY: Denies dysuria or hematuria. SKIN: Denies rash or itching. MUSCULOSKELETAL: Denies back pain, joint pain, or myalgia. NEUROLOGIC: Denies headache, numbness, or weakness. PSYCHIATRIC: Denies anxiety or depression. All other systems reviewed are negative, except as documented in HPI. [facility] Past Medical History Medical History (Updated 04/06/24 @ 20:01 by Cheryl Cardenas NP) Family history of colon cancer in father Kidney stones UTI (urinary tract infection) Surgical History Surgical History Hx of spinal surgery Hx of tubal ligation Hx of appendectomy Social History Social History Smoking status: Never smoker Alcohol intake: current Alcohol use details: Occasional Substance use: never Gender identity (if verbalized by the patient): Female Spiritual care concerns: No Comments At time of signature, agree with nursing past medical, surgical, social and family history. There is no relevant family history pertinent to the presenting complaint. Exam Narrative: GENERAL: This is a well-nourished, well-developed patient, in no apparent distress. HEAD: normocephalic, atraumatic. EYES: PERRL. Sclera clear/white. Vision is grossly intact. EARS: External ears normal, auditory canals clear and without drainage, right TM has fluid and slightly bulging with mild erythema. Left TM normal. No perforation bilaterally. NOSE: External nose normal with no obvious nasal discharge, nares without redness, no rhinorrhea. THROAT: Mucous membranes moist, posterior pharynx clear. NECK: Neck supple, non-tender without lymphadenopathy, masses or thyromegaly. CARDIOVASCULAR: Regular rate and rhythm without murmurs, gallops, or rubs. RESPIRATORY: Clear to auscultation. Breath sounds equal bilaterally. No wheezes, rales, or rhonchi. SKIN: warm, Dry, intact with no suspicious lesions or rash, good texture and turgor. NEURO: awake, alert, and oriented to person, place and time. There were no obvious focal neurologic abnormalities. EXTREMITIES: No joint tenderness, effusion, or edema noted. Course Course Level of Care: Express Care Visit Vital Signs Vital signs: Vital Signs Temperature 36.3 C L 04/06/24 19:46 Pulse Rate 84 04/06/24 19:46 Respiratory Rate 16 04/06/24 19:46 Blood Pressure 123/84 04/06/24 19:46 Pulse Oximetry 100 04/06/24 19:46 Temperature 36.3 C L 04/06/24 19:46 Pulse Rate 84 04/06/24 19:46 Respiratory Rate 16 04/06/24 19:46 Blood Pressure 123/84 04/06/24 19:46 Pulse Oximetry 100 04/06/24 19:46 Reviewed Medical Decision Making MDM Narrative Medical decision making narrative: Please be advised this is a medical document. It is intended for [id number] communication. It is written in medical language and may contain unfamiliar abbreviations or verbiage. Medical documents are intended to carry relevant information, facts as evident, and the clinical opinion of the practitioner at the time of the encounter. This report may have been done utilizing a voice recognition system. Attempts have been made to correct errors. However, there may be uncorrected grammatical, spelling, and recognition errors present. The file time of this note does not necessarily represent the time of service. Vital Signs Vital Signs: Vital Signs Temperature 36.3 C L 04/06/24 19:46 Pulse Rate 84 04/06/24 19:46 Respiratory Rate 16 04/06/24 19:46 Blood Pressure 123/84 04/06/24 19:46 Pulse Oximetry 100 04/06/24 19:46 Temperature 36.3 C L 04/06/24 19:46 Pulse Rate 84 04/06/24 19:46 Respiratory Rate 16 04/06/24 19:46 Blood Pressure 123/84 04/06/24 19:46 Pulse Oximetry 100 04/06/24 19:46 Discharge Plan Discharge Clinical Impression: Acute serous otitis media, right ear Patient Disposition: Home, Self-Care Condition: Stable Instructions: Antibiotic Form, Fluid In The Ear (Serous Otitis Media) (ED) Additional Instructions: Take antibiotic as prescribed until gone. Take ibuprofen or Tylenol every 6-8 hours as needed for pain. Follow-up with your primary care physician if right ear pain is not improving. Patient Language: Croatian Prescriptions: New amoxicillin 875 mg tablet 875 mg PO Q12H 10 Days Qty: 20 0RF No Action rosuvastatin 5 mg tablet 5 mg PO DAILY venlafaxine 37.5 mg Capsule,Extended Release 24hr 37.5 mg PO HS Follow-up/Referrals: Roberto,AURA Cisneros [Primary Care Provider] - Time of Disposition: 20:01
== END 2024-04-06 20:06 | disposition home or self-care (01) ==
PROVIDERS: Emergency Provider Nurse Practitioner Family; PCP Physician Assistant
DX: H65.01 Acute serous otitis media, right ear (principal)
CPT/HCPCS: 99213; G0463

== ENCOUNTER 2024-07-15 19:44 | Emergency (ER) | payer OTHER, BC, SELFPAY ==
--- NOTE | 2024-07-15 19:48 | ED_ITS ---
HPI - Female Genitourinary General Chief complaint: Urogenital-Female Stated complaint: Uti Symptoms Time Seen by Provider: 07/15/24 19:49 Source: patient Mode of arrival: ambulatory Limitations: no limitations History of Present Illness HPI Narrative: Jessica is a 54-year-old female patient presenting to the clinic today with complaints of possible UTI. She reports bladder pressure, abdominal discomfort, and malodorous urine x3 days. No fevers, chills, body aches, back pain, or nausea/vomiting. Related Data Home Medications ?Medication ?Instructions ?Recorded ?Confirmed ?Last Taken ?Type rosuvastatin 5 mg tablet 5 mg PO DAILY 12/08/23 12/18/23 12/17/23 History venlafaxine 37.5 mg 37.5 mg PO HS 12/08/23 12/18/23 12/17/23 History capsule,extended release 24 hr gabapentin 100 mg capsule mg 07/15/24 Unknown History metronidazole 500 mg tablet mg 07/15/24 Unknown History Allergies Allergy/AdvReac Type Severity Reaction Status Date / Time nitrofurantoin (From Allergy Swelling Verified 07/15/24 19:52 Macrobid) Review of Systems Review of Systems: Pertinent positives per HPI. Patient denies any fever, chills, rash, headache, visual changes, dizziness, cough, shortness of breath, chest pain, palpitations, nausea, vomiting, diarrhea, constipation. PMFSH Past Medical History Medical History Family history of colon cancer in father Kidney stones UTI (urinary tract infection) Surgical History Surgical History Hx of spinal surgery Hx of tubal ligation Hx of appendectomy Social History Social History Smoking status: Never smoker Alcohol intake: current Alcohol use details: Occasional Substance use: never Gender identity (if verbalized by the patient): Female Spiritual care concerns: No Comments At the time of my signature, I reviewed and agree with the nursing past medical, surgical, social, and family history. There is no relevant family history pertinent to the patient complaint. Exam Narrative: General: Well-developed, well nourished, in no apparent distress. Head: Normocephalic, atraumatic. Cardio: Regular rate and rhythm, s1 and s2 normal, no murmur appreciated. Resp: Clear to auscultation bilaterally, no rhonchi, rales, wheezing or rubs. Abdomen: Soft, pliable, bowel sounds present in all quadrants, non-tender to palpation, no organomegly, no CVAT tenderness. Course Course Emergency Course: Portions of this record may have been created with voice recognition software. Level of Care: Express Care Visit Vital Signs Vital signs: Vital Signs Temperature 36.1 C L 07/15/24 19:52 Pulse Rate 109 H 07/15/24 19:52 Respiratory Rate 16 07/15/24 19:52 Blood Pressure 108/87 07/15/24 19:52 Pulse Oximetry 99 07/15/24 19:52 Temperature 36.1 C L 07/15/24 19:52 Pulse Rate 109 H 07/15/24 19:52 Respiratory Rate 16 07/15/24 19:52 Blood Pressure 108/87 07/15/24 19:52 Pulse Oximetry 99 07/15/24 19:52 Vital signs reviewed MDM - Female Genitourinary MDM Narrative Medical decision making narrative: At the time of visit patient is resting comfortably on the exam table. Patient appears to be nontoxic. Labs: Urinalysis positive for blood, protein, leukocytes, ketones, and bili. We will send urine for culture Plan: I suspect patient has UTI. Prescription for ciprofloxacin was sent to the pharmacy. Supportive measures were discussed with the patient and they voiced understanding discharge instructions and agrees to treatment plan. Return precautions reviewed Differential Diagnosis Differential diagnosis: Likely urinary tract infection and cystitis Lab Data Labs: Lab Results 07/15/24 Range/Units 19:58 POC Urine Color Dark POC Urine Clarity Cloudy POC Urine pH 6.0 POC Ur Specif [place] 1.020 POC Urine Protein 2+ (Negative) POC Ur Glucose (UA) Negative (Negative) POC Urine Ketones Trace (Negative) POC Urine Blood 3+ (Negative) POC Urine Nitrite Negative (Negative) POC Urine Bilirubin 1+ (Negative) POC Urine Urobilinogen 0.2 POC U Leukocyte Esteras 1+ (Negative) Discharge Plan Discharge Clinical Impression: Urinary tract infection Qualifiers: Urinary tract infection type: acute cystitis Hematuria presence: with hematuria Qualified Code(s): N30.01 - Acute cystitis with hematuria Patient Disposition: Home Condition: Stable Instructions: Antibiotic Form, Urinary Tract Infection in Women (ED) Additional Instructions: Urinalysis positive for leukocytes, protein, blood, and ketone. We will send urine for culture. Increase fluids and stay well hydrated Wipe front to back. May use wet wipes. Avoid tub baths If sexually active- pee before and after intercourse. Wear cotton panties Avoid tight clothing up against the genitals Follow up with your PCP in 1 week if symptoms persist. Patient Language: Rwandan Prescriptions: New ciprofloxacin HCl [Cipro] 500 mg tablet 500 mg PO Q12H 7 Days Qty: 14 0RF phenazopyridine [Pyridium] 200 mg tablet 200 mg PO TID PRN (Reason: pain) Qty: 6 0RF No Action metronidazole 500 mg tablet gabapentin 100 mg capsule rosuvastatin 5 mg tablet 5 mg PO DAILY venlafaxine 37.5 mg Capsule,Extended Release 24hr 37.5 mg PO HS Follow-up/Referrals: PHYSICIAN,[employer] [Primary Care Provider] - Time of Disposition: 20:01 Quality NIHSS Nursing Documentation ED NIHSS nursing documentation: reviewed/agree
[2024-07-15 19:52] VITALS: BP 108/87; PULSE 109; RESP 16; TEMP 36.1; O2SAT 99
[2024-07-15 20:00] LABS: EDUAAPPEAR Cloudy; EDUABILI 1+ (Negative); EDUABLOOD 3+ (Negative); EDUACOLOR1 Dark; EDUAGLUCOSE Negative (Negative); EDUAKETONE Trace (Negative); EDUALEUKO 1+ (Negative); EDUANITRATE Negative (Negative); EDUAPROTEIN 2+ (Negative); EDUAUROBILI 0.2
== END 2024-07-15 20:07 | disposition home or self-care (01) ==
PROVIDERS: Nurse Practitioner Family
DX: N30.01 Acute cystitis with hematuria (principal)
CPT/HCPCS: 81003; 87086; 99213; G0463

== ENCOUNTER 2024-10-03 13:33 | Outpatient (CLI) | payer OTHER, BC, SELFPAY ==
--- NOTE | ~2024-10-03 | MM_ITS ---
EXAMINATION: MM screening myra BI w ritesh HISTORY: Screening mammogram TECHNIQUE: Craniocaudal and mediolateral oblique 3-D tomosynthesis images were obtained and synthetic 2-D images were generated. CAD analysis was submitted and interpreted. COMPARISON: 09/28/2023, 05/30/2022, 11/12/2020 BREAST PARENCHYMAL COMPOSITION:Not Dense. The breasts are almost entirely fatty FINDINGS: No suspicious mass, calcification, or architectural distortion are identified in either zafar ast to suggest malignancy. There has been no suspicious interval change. IMPRESSION: No mammographic evidence of malignancy. Recommend routine screening mammography in one year. BI-RADS Category 1: Negative Reviewed, dictated and finalized at location .
== END 2024-10-03 13:34 | disposition home or self-care (01) ==
LOC: MICIMG 13:34
PROVIDERS: PCP Physician Assistant; Visit Provider Student in an Organized Health Care Education/Training Program
DX: Z12.31 Encounter for screening mammogram for malignant neoplasm of breast (principal)
CPT/HCPCS: 77063; 77067

== ENCOUNTER 2024-11-15 08:08 | Emergency (ER) | payer OTHER, BC, SELFPAY ==
--- NOTE | 2024-11-15 08:16 | ED.URI ---
HPI - URI/Sore Throat General Chief Complaint: Upper Respiratory Infection Stated Complaint: Sore throat, R side ear pain Time Seen by Provider: 11/15/24 08:34 Source: patient and RN notes reviewed Mode of arrival: ambulatory Limitations: no limitations History of Present Illness HPI Narrative: 54-year-old female presents with concern for 3 week history of harsh cough. Reports the last couple days she has developed sore throat and right ear pain. She has taking cough medicine without relief. MD elicited complaint: cough and sore throat Related Data Home Medications ?Medication ?Instructions ?Recorded ?Confirmed ?Last Taken ?Type rosuvastatin 5 mg tablet 5 mg PO DAILY 12/08/23 12/18/23 12/17/23 History gabapentin 100 mg capsule mg 07/15/24 Unknown History venlafaxine 75 mg capsule,extended mg PO 11/15/24 Unknown History release 24 hr Allergies Allergy/AdvReac Type Severity Reaction Status Date / Time nitrofurantoin (From Allergy Swelling Verified 11/15/24 08:19 Macrobid) Review of Systems Review of Systems: CONSTITUTIONAL: Denies malaise, chills, sweats, or fever. EYES: Denies visual changes, redness, or discharge. ENT: Denies rhinorrhea, congestion, sinus pain, otalgia. Reports sore throat. CARDIOVASCULAR: Denies chest pain, palpitations, or edema. RESPIRATORY: Reports cough. Denies dyspnea. GASTROINTESTINAL: Denies abdominal pain, nausea, vomiting, diarrhea SKIN: Denies rash or itching. MUSCULOSKELETAL: Denies myalgia. NEUROLOGIC: Denies headache. All systems reviewed & are unremarkable except as noted in HPI and below PMFSH Past Medical History Medical History Family history of colon cancer in father Kidney stones UTI (urinary tract infection) Surgical History Surgical History Hx of spinal surgery Hx of tubal ligation Hx of appendectomy Social History Social History Smoking status: Never smoker Alcohol intake: current Alcohol use details: Occasional Substance use: never Gender identity (if verbalized by the patient): Female Spiritual care concerns: No Comments At time of signature, agree with nursing past medical, surgical, social and family history. There is no relevant family history pertinent to the presenting complaint Exam Narrative: GENERAL: Well-appearing, well-nourished, and in no acute distress. HEAD: Normocephalic EYES: PERRLA, conjunctivae clear ENT: Nares clear, turbinates edematous and erythematous, clear discharge. Mucous membranes moist. TM pearly ordaz with dull light reflex bilaterally; no tragal tenderness. Oropharynx not erythematous without lesions. Tonsils not enlarged and without exudate, no drooling, no hoarseness, no trismus, uvula midline. NECK: Supple. No lymphadenopathy CHEST: Clear to auscultation, breath sounds equal. No wheezing, rhonchi, rales, or stridor. No respiratory distress, speaks in full sentences. HEART: Regular rate and rhythm. No murmur heard. SKIN: Warm, dry, no rash. NEURO: Alert and oriented x3. PSYCH: Normal mood and affect Course Course Emergency Course: Patient is aware of diagnosis, understands and agrees to treatment plan. Anticipatory guidance given. Patient agrees to follow-up as directed and is aware of reasons to seek care at the emergency department. Portions of this record may have been created with voice recognition software Level of Care: Express Care Visit Vital Signs Vital signs: Reviewed. MDM - URI/Sore Throat MDM Narrative Medical decision making narrative: Differential diagnosis considered: Davis virus, strep pharyngitis, allergic rhinitis, upper respiratory tract infection, sinusitis, rhinosinusitis, nasopharyngitis. viral pharyngitis, otitis media, otitis externa, pneumonia, bronchitis, viral cough syndrome, viral syndrome, and influenza. Exam findings show no acute concerns or changes; patient is non-toxic appearing and is in no distress. Patient is appropriate for outpatient treatment and follow-up. Lab Data Attestation: I reviewed the patient's lab results. Critical Care Time Critical Care Time Critical Care Time: No Discharge Plan Discharge Clinical Impression: Acute streptococcal pharyngitis, Cough Patient Disposition: Home Condition: Stable Instructions: Antibiotic Form, Strep Throat (ED) Additional Instructions: -Take the medication as prescribed. Throw away the toothbrush after 24hours of antibiotic. -Eat and drink things that are easy to swallow, like tea or soup, or popsicles to suck on. -Oral rinses such as: Salt water gargles and/or may use topical anesthetic (eg. Chloraseptic spray) or lozenges to relieve dryness or throat pain). -Take Tylenol and ibuprofen as needed for pain and fever as directed. -Frequent hand washing or hand propeller tester is one of the best ways to prevent spread of infection. -Follow up with primary care provider in 2-3 days if condition is not improving; or seek ER visit if you have trouble breathing, cannot drink enough fluids, have muffled voice, difficulty opening your mouth, or severe swelling. Patient Language: Guyanese Prescriptions: New dextromethorphan-guaifenesin [Mucinex DM] 60-1,200 mg tablet extended release 12 hr 1 tablet PO Q12H Qty: 12 0RF methylprednisolone [Medrol (Hay)] 4 mg tablets,dose pack See Rx Instructions .ROUTE .COMPLEX Qty: 21 0RF Rx Instructions: orally per package directions penicillin V potassium 500 mg tablet 500 mg PO Q12H 10 Days Qty: 20 0RF No Action gabapentin 100 mg capsule venlafaxine 75 mg capsule,extended release 24hr PO rosuvastatin 5 mg tablet 5 mg PO DAILY Follow-up/Referrals: Roberto,AURA Cisneros [Primary Care Provider, Unknown] Time of Disposition: 08:42
[2024-11-15 08:23] VITALS: BP 122/83; PULSE 93; RESP 16; TEMP 36.6; O2SAT 99
[2024-11-15 08:52] LABS: EDSTREPNEGPOS1 Positive (Negative)
== END 2024-11-15 08:44 | disposition home or self-care (01) ==
PROVIDERS: Emergency Provider Nurse Practitioner; PCP Physician Assistant
DX: J02.0 Streptococcal pharyngitis (principal); R05.9 Cough, unspecified
CPT/HCPCS: 87880; 99213; G0463

== ENCOUNTER 2024-11-21 19:00 | Emergency (ER) | payer OTHER, BC, SELFPAY ==
--- NOTE | 2024-11-21 19:03 | ED.URI ---
HPI - URI/Sore Throat General Chief Complaint: Upper Respiratory Infection Stated Complaint: strep symptoms Source: patient and RN notes reviewed Mode of arrival: ambulatory Limitations: no limitations History of Present Illness HPI Narrative: Patient is a 54-year-old female who presents to the [facility] with complaints of sore throat, cough and headache that has been ongoing. Patient states that she was seen here last Thursday and diagnosed with strep. She was treated with penicillin with no improvement of her symptoms. Patient states that her sore throat has actually worsened since she was seen here last. She endorses a frequent nonproductive cough. Denies chest pain or shortness of breath. Denies recent fevers. Related Data Home Medications ?Medication ?Instructions ?Recorded ?Confirmed ?Last Taken ?Type rosuvastatin 5 mg tablet 5 mg PO DAILY 12/08/23 11/21/24 12/17/23 History gabapentin 100 mg capsule 300 mg PO DAILY 07/15/24 11/21/24 Unknown History venlafaxine 75 mg capsule,extended 75 mg PO QPM 11/15/24 11/21/24 Unknown History release 24 hr Allergies Allergy/AdvReac Type Severity Reaction Status Date / Time nitrofurantoin (From Allergy Swelling Verified 11/21/24 19:06 Macrobid) Review of Systems Review of Systems: CONSTITUTIONAL: Denies fever, chills, or sweats. EYES: Denies visual changes, redness, or discharge. ENT: Reports sore throat CARDIOVASCULAR: Denies chest pain, palpitations, or edema. RESPIRATORY: Reports cough but denies dyspnea. GASTROINTESTINAL: Denies abdominal pain, nausea, vomiting, or diarrhea. GENITOURINARY: Denies dysuria or hematuria. SKIN: Denies rash or itching. MUSCULOSKELETAL: Denies back pain, joint pain, or myalgia. NEUROLOGIC: Reports headache Pertinent positives per HPI. [facility] Past Medical History Medical History Family history of colon cancer in father Kidney stones UTI (urinary tract infection) Surgical History Surgical History Hx of spinal surgery Hx of tubal ligation Hx of appendectomy Social History Social History Smoking status: Never smoker Alcohol intake: current Alcohol use details: Occasional Substance use: never Gender identity (if verbalized by the patient): Female Spiritual care concerns: No Comments At the time of my signature, I reviewed and agree with the nursing past medical, surgical, social, and family history. There is no relevant family history pertinent to the patient complaint. Exam Narrative: GENERAL: This is a well-nourished, well-developed patient, in no apparent distress. HEAD: normocephalic, atraumatic. EYES: Sclera clear/white. Vision is grossly intact. EARS: External ears normal. Hearing grossly intact. NOSE: External nose normal with no obvious nasal discharge, nares without redness, no rhinorrhea. THROAT: Mucous membranes moist, posterior pharynx clear. NECK: Neck supple, non-tender without lymphadenopathy, masses or thyromegaly. CARDIOVASCULAR: Regular rate and rhythm without murmurs, gallops, or rubs. RESPIRATORY: Clear to auscultation. Breath sounds equal bilaterally. No wheezes, rales, or rhonchi. GASTROINTESTINAL: Abdomen soft, non-tender, nondistended. Bowel sounds are active. No hepato-splenomegaly, or palpable masses. No guarding. SKIN: warm, intact with no suspicious lesions or rash, good texture and turgor. NEURO: awake, alert, and oriented to person, place and time. There were no obvious focal neurologic abnormalities. Course Course Level of Care: Express Care Visit Vital Signs Vital signs: Vital Signs Temperature 96.9 F L 11/21/24 19:13 Pulse Rate 82 11/21/24 19:13 Respiratory Rate 16 11/21/24 19:13 Blood Pressure 131/98 H 11/21/24 19:13 Pulse Oximetry 100 11/21/24 19:13 Temperature 96.9 F L 11/21/24 19:13 Pulse Rate 82 11/21/24 19:13 Respiratory Rate 16 11/21/24 19:13 Blood Pressure 131/98 H 11/21/24 19:13 Pulse Oximetry 100 11/21/24 19:13 Reviewed MDM - URI/Sore Throat MDM Narrative Medical decision making narrative: After 24 hours on antibiotics throw tooth brush away and start using a new one. Increase your Vitamin C. Do not share drinks. Take Motrin alternating with Tylenol for pain and/or fever alternating every 4 hours. Increase fluids, avoid caffeine. Take a probiotic daily or eat a low sugar yogurt while taking the antibiotic. Follow up with Primary provider if not getting better this week Differential Diagnosis Differential diagnosis: Likely upper respiratory infection, viral infection, pharyngitis and other (strep) Lab Data Attestation: I reviewed the patient's lab results. Critical Care Time Critical Care Time Critical Care Time: No Discharge Plan Discharge Clinical Impression: Acute bacterial pharyngitis Patient Disposition: Home Condition: Stable Instructions: Antibiotic Form Additional Instructions: After 24 hours on antibiotics throw tooth brush away and start using a new one. Increase your Vitamin C. Do not share drinks. Take Motrin alternating with Tylenol for pain and/or fever alternating every 4 hours. Increase fluids, avoid caffeine. Take a probiotic daily or eat a low sugar yogurt while taking the antibiotic. Follow up with Primary provider if not getting better this week Patient Language: Occitan Prescriptions: New amoxicillin-pot clavulanate 875-125 mg tablet 1 tablet PO Q12H 10 Days Qty: 20 0RF No Action gabapentin 100 mg capsule 300 mg PO DAILY venlafaxine 75 mg capsule,extended release 24hr 75 mg PO QPM penicillin V potassium 500 mg tablet 500 mg PO Q12H 10 Days Qty: 20 0RF rosuvastatin 5 mg tablet 5 mg PO DAILY Follow-up/Referrals: Roberto,AURA Cisneros [Primary Care Provider, Unknown] Time of Disposition: 19:21
[2024-11-21 19:13] VITALS: BP 131/98; PULSE 82; RESP 16; TEMP 36.1; O2SAT 100
[2024-11-21 19:23] LABS: EDSTREPNEGPOS1 Negative (Negative)
== END 2024-11-21 19:40 | disposition home or self-care (01) ==
PROVIDERS: Emergency Provider Nurse Practitioner; PCP Physician Assistant
DX: J02.9 Acute pharyngitis, unspecified (principal)
CPT/HCPCS: 87081; 87880; 99213; G0463